=== PATIENT | female | born 1965 ===

== ENCOUNTER 2017-11-15 07:31 | Day surgery (SDC) | payer BC, OTHER ==
[2017-11-12 10:24] VITALS: BMI 25.4
[2017-11-15] MEDS ORDERED: Iohexol 240 200 ML IJ ONE (11:55)
[2017-11-15] MEDS ORDERED: Lidocaine 2% Jelly (Uro-Jet) ONE (12:05)
[2017-11-15] MEDS ORDERED: Iohexol 240 200 ML ONE (12:05)
[2017-11-15 13:22] VITALS: BP 123/81; PULSE 59; RESP 18; TEMP 97.2; O2SAT 100
--- NOTE | 2017-11-15 16:17 | RAD ---
PROCEDURE: Intraoperative Fluoroscopy. HISTORY: CYSTOSCOPY FINDINGS: Fluoroscopic assistance was provided. 1 minute fluoroscopy time utilized during this procedure. Please refer to the operative report from TIM Dixon.
--- NOTE | 2017-12-08 03:05 | OP ---
PROCEDURE DATE: 11/15/2017 PREOPERATIVE DIAGNOSIS: Mixed urinary incontinence. POSTOPERATIVE DIAGNOSIS: Mixed urinary incontinence. PROCEDURE PERFORMED: Cystoscopy and cystogram. DESCRIPTION OF PROCEDURE: The cystogram was initially performed. The patient was placed in the operating table in a supine position. A Rouse catheter was initially inserted after the patient voided, there was less than 20 mL postvoid residual. At this time, I feel the bladder to capacity with cystography material to the point of fullness and then some x-rays were taken and there was noted to be minimal +1 hypermobility of the bladder neck on Valsalva. It did not go below the area of the inferior symphysis pubis. I then removed the Rouse catheter, ask the patient to cough vigorously and she generated no significant Jorge leak test. At this point, lidocaine jelly was used for local anaesthetic effect then with a flexible cystoscope by performed cystoscopy. There was no evidence of any unusual bladder wall lesions, trabeculations or other pathologic finding. Ureteral orifices were well placed. Essentially the cystoscopic evaluation was normal. The patient was taken from the operating room in good condition. Marilin Osei MD
== END 2017-11-15 13:30 | disposition home or self-care (01) ==
LOC: H.OPSURG 07:31
PROVIDERS: ATTEND Urology
DX: R33.8 Other retention of urine (principal)
CPT/HCPCS: 51600; 52000; Q9966